=== PATIENT | female | born 1940 | race Caucasian/White ===

== ENCOUNTER → 2019-11-18 12:02 | Outpatient (CLI) | payer MEDICARE, SELFPAY ==
--- NOTE | ~2019-11-18 | MM_ITS ---
EXAMINATION: MM screening [facility] BI w kristopher HISTORY: Screening mammogram TECHNIQUE: Craniocaudal and mediolateral oblique 3-D tomosynthesis images were obtained and synthetic 2-D images were generated. CAD analysis was submitted and interpreted. COMPARISON: 08/27/2018, 08/23/2017, 08/16/2016 BREAST PARENCHYMAL COMPOSITION: There are scattered areas of fibroglandular density. FINDINGS: There is stable focal asymmetry in the middle third of the right breast. There is no eviden ce of suspicious mass, calcification, or architectural distortion to suggest malignancy in either shahrzad ast. There has been no suspicious interval change. IMPRESSION: 1. No mammographic evidence of malignancy. 2. Recommend routine screening mammography in one year. BI-RADS Category 2: Benign finding(s). Reviewed, dictated and finalized at location A.
== END ==
PROVIDERS: PCP Internal Medicine; Visit Provider Internal Medicine
DX: Z12.31 Encounter for screening mammogram for malignant neoplasm of breast (principal)
CPT/HCPCS: 77063; 77067

== ENCOUNTER 2020-07-05 17:05 | Outpatient (CLI) | payer MEDICARE, SELFPAY | END 2020-07-05 17:06 | disposition home or self-care (01) | LOC: ANHCOVIDVC 17:05 | PROVIDERS: PCP Internal Medicine | DX: Z23 Encounter for immunization (principal) | CPT/HCPCS: 0001A; 91300 ==

== ENCOUNTER 2020-07-26 16:45 | Outpatient (CLI) | payer MEDICARE, SELFPAY | END 2020-07-26 16:46 | disposition home or self-care (01) | LOC: ANHCOVIDVC 16:45 | PROVIDERS: PCP Internal Medicine | DX: Z23 Encounter for immunization (principal) | CPT/HCPCS: 0002A; 91300 ==

== ENCOUNTER 2020-12-06 14:15 | Outpatient (CLI) | payer MEDICARE, SELFPAY ==
--- NOTE | ~2020-12-06 | XR_ITS ---
XR lumbar spine 6V w bending DATE: 12/06/2020 14:53 INDICATION: Low back pain for 2 months. No injury. TECHNIQUE: Upright AP and flexion or extension lateral views. Bilateral supine oblique views, supine lateral view. Coned lateral lumbosacral view COMPARISON: None FINDINGS: Diffuse osteopenia. There is severe degenerative disc disease at L2-3 with prominent spur formation. The remaining lumbar and lumbosacral interspaces are relatively preserved. There is mild degenerative disease at L3-4 and L4-5. There is degenerative change at the apophyseal joints with associated grade 1 anterolisthesis at L4-5 . No spondylolysis is detected. No fracture or bone destruction is evident. The included lower thoracic and lumbar pedicles are intac t. The sacroiliac joints appear normal. Status post cholecystectomy. There is atherosclerotic calcification of the abdominal aorta and iliac arteries. IMPRESSION: Degenerative disc disease, severe at L2-3, mild at L3-4 and L4-5 Degenerative change at the apophyseal joints with associated grade 1 anterolisthesis at L4-5 Osteopenia Reviewed, dictated and finalized at location B. IMPRESSION: Degenerative disc disease, severe at L2-3, mild at L3-4 and L4-5 Degenerative change at the apophyseal joints with associated grade 1 anterolist hesis at L4-5 Osteopenia
== END 2020-12-06 14:16 | disposition home or self-care (01) ==
PROVIDERS: PCP Internal Medicine; Visit Provider Physician Assistant
DX: M54.5 Low back pain (principal); M51.36 Other intervertebral disc degeneration, lumbar region; M43.16 Spondylolisthesis, lumbar region; M85.88 Other specified disorders of bone density and structure, other site
CPT/HCPCS: 72114

== ENCOUNTER → 2020-12-09 13:06 | Outpatient (CLI) | payer MEDICARE, SELFPAY ==
--- NOTE | ~2020-12-09 | MM_ITS ---
EXAMINATION: MM screening [facility] BI w kristopher HISTORY: Screening TECHNIQUE: Craniocaudal and mediolateral oblique 3-D tomosynthesis images were obtained and synthetic 2-D images were generated. CAD analysis was submitted and interpreted. COMPARISON: Comparison to multiple prior studies sequentially, with oldest reviewed study dated 10/2014. BREAST PARENCHYMAL COMPOSITION: There are scattered areas of fibroglandular density. FINDINGS: There is no evidence of suspicious mass, calcification, or architectural distortion to sugg est malignancy in either breast. There has been no suspicious interval change. IMPRESSION: 1. No mammographic evidence of malignancy. 2. Recommend routine screening mammography in one year. BI-RADS Category 1: Negative Reviewed, dictated and finalized at location A.
== END ==
PROVIDERS: PCP Internal Medicine; Visit Provider Internal Medicine
DX: Z12.31 Encounter for screening mammogram for malignant neoplasm of breast (principal)
CPT/HCPCS: 77063; 77067

== ENCOUNTER 2021-04-19 13:39 | Outpatient (CLI) | payer MEDICARE, SELFPAY ==
--- NOTE | ~2021-04-19 | XR_ITS ---
EXAMINATION: XR ankle RT min 3V DATE: 04/19/2021 14:06 INDICATION: Right ankle effusion. TECHNIQUE: 4 views of right ankle were obtained. COMPARISON: None. FINDINGS: Bone alignment is normal. No fracture. There is an osteochondral lesion of medial talar dom e. There is mild osteoarthritis of talonavicular joint. There is an enthesophyte at plantar aspect of calcaneal tuberosity. Ankle soft tissue swelling is noted. IMPRESSION: 1. 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 Reviewed, dictated and finalized at location A. 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 Polyarticular osteoarthritis including an osteochondral lesion of medial john ar dome.
== END 2021-04-19 13:40 | disposition home or self-care (01) ==
PROVIDERS: PCP Internal Medicine; Visit Provider Physician Assistant
DX: M79.89 Other specified soft tissue disorders (principal); M19.071 Primary osteoarthritis, right ankle and foot; M77.31 Calcaneal spur, right foot
CPT/HCPCS: 73610

== ENCOUNTER → 2021-11-14 15:12 | Outpatient (CLI) | payer MEDICARE, SELFPAY ==
--- NOTE | ~2021-11-14 | XR_ITS ---
XR chest 2V DATE: 11/14/2021 15:43 INDICATION: Cough TECHNIQUE: 2 views COMPARISON: 02/2013 portable AP chest FINDINGS: Heart size is within normal range. The lungs are moderately hyperinflated. No pulmonary inf iltrate or consolidation, pleural effusion or pulmonary vascular congestion or pneumothorax is detect ed. Osteopenia. IMPRESSION: Moderate hyperinflation; no active cardiopulmonary disease Reviewed, dictated and finalized at location A.
== END ==
PROVIDERS: PCP Internal Medicine; Visit Provider Internal Medicine
DX: R05.9 Cough, unspecified (principal); R91.8 Other nonspecific abnormal finding of lung field
CPT/HCPCS: 71046

== ENCOUNTER 2021-12-15 08:27 | Outpatient (CLI) | payer MEDICARE, SELFPAY ==
--- NOTE | ~2021-12-15 | NM_ITS ---
EXAMINATION: NM dexter stress w perfusion DATE: 12/15/2021 12:49 INDICATION: Chest pain. TECHNIQUE: Rest images were obtained following intravenous administration of 10.0 mCi Tc99m tetrofosm in (Myoview). The patient was infused intravenously with Lexiscan (regadenoson). Then, 32.2 mCi Tc99m tetrofosmin (Myoview) was administered intravenously, and supine and prone stress images were obtain ed. Data was reconstructed into short axis and horizontal and vertical long axis SPECT images. Gated SPECT images were also obtained. COMPARISON: CT abdomen and pelvis 02/07/2013 FINDINGS: There is a moderate-sized, mild, reversible perfusion defect involving apical to mid inferi or and mid inferolateral segments of left ventricle, consistent with ischemia. There is no segmental wall motion abnormality. Left ventricular ejection fraction measures 59%. IMPRESSION: 1. Moderate-sized area of mild ischemia involving apical to mid inferior and mid inferolateral segmen ts of left ventricle. 2. Normal left ventricular ejection fraction measuring 59%. Reviewed, dictated and finalized at location A. IMPRESSION: 1. Moderate-sized area of mild ischemia involving apical to mid inferior and mi d inferolateral segments of left ventricle. 2. Normal left ventricular ejection fraction measuring 59%.
--- NOTE | 2021-12-15 08:54 | EST_ITS ---
Patient Info Name: Lilian Glaser Age: 81 years : 1940 Gender: Female Ht: 63 in Wt: 175 lbs BSA: 1.91 m2 HR: 74 bpm BP: 189 / 75 mmHg Heart Rhythm: Sinus Rhythm Exam Date: 12/15/2021 11:01 AM Exam Location: [facility] Stress Patient Status: Outpatient Admit Date: 12/15/2021 Staff Ordering Physician: Josias Edmond DO Attending Provider: Josias Edmond DO Exercise Technologist: Eduarda Chacon CT Exercise Physician: Jamie Jerez DO Exam Type: CA stress dexter w NM Study Info Indications R07.9 - Chest pain, unspecified A regadenoson stress test was performed. Summary 1. 1. Negative lexiscan stress test for ischemic ST changes by ECG criteria. 2. 2. Baseline hypertension. 3. 3. Nuclear scan to follow and will be reported separately. Please correlate with it. 4. 4. Patient informed of the above results. Protocol: Lexiscan Stress ECG Details Stage: REST Duration (min): 2 min : 18 sec HR (bpm): 74 SBP (mmHg): 189 DBP (mmHg): 75 Stage: REST Duration (min): 16 min : 14 sec HR (bpm): 74 SBP (mmHg): 189 DBP (mmHg): 75 Stage: STAGE 1 Duration (min): 1 min : 0 sec HR (bpm): 90 SBP (mmHg): 180 DBP (mmHg): 60 Stage: RECOVERY Duration (min): 1 min : 0 sec HR (bpm): 101 SBP (mmHg): 180 DBP (mmHg): 60 Stage: RECOVERY Duration (min): 2 min : 0 sec HR (bpm): 101 SBP (mmHg): 180 DBP (mmHg): 60 Stage: RECOVERY Duration (min): 3 min : 0 sec HR (bpm): 101 SBP (mmHg): 181 DBP (mmHg): 70 Stage: RECOVERY Duration (min): 3 min : 2 sec HR (bpm): 100 SBP (mmHg): 181 DBP (mmHg): 70 Rest HR: 74 bpm Peak HR: 102 bpm Rest Sys BP: 189 mmHg Peak Sys BP: 181 mmHg Max Pred HR: 138 bpm % Max Pred HR: 74 % Target HR: 117 bpm Max RPP: 18,462 bpm*mmHg Termination Reason: Completed protocol Cardiac Symptoms: Chest tightness Total Time: 1 min : 0 sec Rest Mascorro BP: 75 mmHg Peak Mascorro BP: 70 mmHg Total Dose: 0.4 mg Resting ECG Sinus rhythm, RBBB. Stress ECG No ST changes. Arrhythmias None. Report Signatures
--- NOTE | 2021-12-15 08:54 | ECHO_ITS ---
Patient Info Name: Lilian Glaser Age: 81 years : 1940 Gender: Female Ht: 63 in Wt: 175 lbs BSA: 1.91 m2 HR: 76 bpm BP: 150 / 71 mmHg Technical Quality: Fair Exam Date: 12/15/2021 9:15 AM Exam Location: [facility] Patient Status: Outpatient Admit Date: 12/15/2021 Staff Ordering Physician: Josias Edmond DO Assistant Financial Accountant: Soledad Hidalgo RDCS Attending Provider: Josias Edmond DO Referring Physician: Mayito STROUD; Exam Type: CA echo doppler color flow Study Info Indications R01.1 - Cardiac murmur, unspecified Complete two-dimensional, color flow and Doppler transthoracic echocardiogram is performed. Summary 1. Complete two-dimensional, color flow and Doppler transthoracic echocardiogram is performed. 2. Left ventricular chamber dimension is normal. 3. Left ventricular systolic function is normal, estimated at 60-65%. 4. There is mildly increased left ventricular wall thickness. 5. The left ventricular diastolic function is grade III diastolic dysfunction. 6. E/e' 19 is elevated. 7. Global longitudinal strain is abnormal at -10.6%. 8. Right ventricular systolic function is reduced based on abnormal TAPSE 1.5 cm. 9. Left atrial chamber dimension is moderately enlarged. 10. There is moderate aortic valve sclerosis. 11. The mitral valve has moderately calcified annulus. 12. There is mild mitral valve regurgitation. 13. No pulmonary hypertension, estimated pulmonary arterial systolic pressure is 33 mmHg. 14. Small atheroma in anterior aortic root. Left Ventricle E/e' 19 is elevated. Global longitudinal strain is abnormal at -10.6%. Left ventricular chamber dimension is normal. Left ventricular systolic function is normal, estimated at 60-65%. There is mildly increased left ventricular wall thickness. The left ventricular diastolic function is grade III diastolic dysfunction. Right Ventricle Right ventricular systolic function is reduced based on abnormal TAPSE 1.5 cm. Right ventricular chamber dimension is not well visualized. Left Atria Left atrial chamber dimension is moderately enlarged. Right Atria Right atrial chamber dimension is normal. Aortic Valve The aortic valve is trileaflet. There is moderate aortic valve sclerosis. There is no aortic valve stenosis. There is no aortic valve regurgitation. Pulmonic Valve There is no pulmonic regurgitation. Mitral Valve The mitral valve has moderately calcified annulus. There is no mitral valve stenosis. There is mild mitral valve regurgitation. Tricuspid Valve There is no tricuspid valve regurgitation. No pulmonary hypertension, estimated pulmonary arterial systolic pressure is 33 mmHg. Pericardium/Pleural There is no pericardial effusion. Inferior Vena Cava Normal inferior vena cava with >50% collapse upon inspiration consistent with normal right atrial pressure, 5 mmHg. Aorta Small atheroma in anterior aortic root. The aortic root size at the sinus of Valsalva is normal. Left Ventricular Outflow Tract Name Value Normal LVOT 2D LVOT Diameter 2.0 cm LVOT Doppler LVOT Peak Gradient
== END 2021-12-15 08:28 | disposition home or self-care (01) ==
PROVIDERS: PCP Internal Medicine; Visit Provider Internal Medicine
DX: R01.1 Cardiac murmur, unspecified (principal); Z79.4 Long term (current) use of insulin; R07.89 Other chest pain; E11.65 Type 2 diabetes mellitus with hyperglycemia; I70.0 Atherosclerosis of aorta; R93.1 Abnormal findings on diagnostic imaging of heart and coronary circulation
CPT/HCPCS: 78452; 93017; 93306; A9502; J2785

== ENCOUNTER 2022-01-23 00:29 | Day surgery (SDC) | payer MEDICARE, SELFPAY ==
[2022-01-20 12:07] VITALS: BMI 31.9
[2022-01-23] VITALS (17 sets, daily range): BP systolic 109–185; BP diastolic 40–63; PULSE 62–83; RESP 12–23; TEMP 36.9–37.1; O2SAT 93–96; BMI 33.7
[2022-01-23 09:33] LABS: Basophils Absolute Auto 0.1 K/mm3 (0.0-0.1); Basophils Percent Auto 0.6 % (0.2-1.2); Eosinophils Absolute Auto 0.4 K/mm3 (0-0.3); Eosinophils Percent Auto 3.2 % (0-4.4); Hematocrit 40.5 % (37.0-47.0); Hemoglobin 13.2 g/dL (12.0-15.0); Immature Granulocyte Absolute 0.04 K/mm3 (0.00-0.031); Immature Granulocyte Percent A 0.3 % (0-0.5); Lymphocytes Absolute Auto 3.35 K/mm3 (0.9-3.2); Lymphocytes Percent Auto 26.7 % (18.3-44.2); Mean Corpuscular HGB Conc 32.6 g/dl (32-36); Mean Corpuscular Hemoglobin 28.8 pg (26-34); Mean Corpuscular Volume 88.4 fl (80-100); Mean Platelet Volume 11.7 fl (7.4-10.4); Monocytes Absolute Auto 0.9 K/mm3 (0.1-0.6); Monocytes Percent Auto 7.3 % (2.6-8.5); Neutrophils Absolute Auto 7.8 K/mm3 (1.3-6.7); Neutrophils Percent Auto 61.9 % (45.5-73.1); Platelet Count Result 292 k/mm3 (150-375); Red Blood Count 4.58 M/mm3 (4.2-5.4); Red Cell Distribution Width 13.6 % (11.5-14.5); White Blood Count 12.5 K/mm3 (4.5-10.0)
[2022-01-23 09:43] LABS: Anion Gap 9 mmol/L (8-16); Blood Urea Nitrogen 21 mg/dL (7-17); Carbon Dioxide 28 mmol/L (22-30); Chloride 104 mmol/L (98-107); Estimated CRCL calculation 33 ml/min; Estimated Glomerular Filt Rate 43; Glucose 103 mg/dL (65-110); Potassium 4.4 mmol/L (3.4-5.0); Sodium 141 mmol/L (137-145)
[2022-01-23] MEDS: SODIUM CHLORIDE 0.9% IV 500 ML 100 ML IV CONT (09:45)
--- NOTE | 2022-01-23 10:09 | WPDMODSED ---
Moderate Sedation Note-Pt Data Patient Data Diagnosis: Exertional dyspnea hypertension diabetes abnormal stress test Present Complaint: exertional shortness of breath Procedure to be performed/Plan: left heart catheterization Allergies Allergy/AdvReac Type Severity Reaction Status Date / Time Qrzrrgg-PLW-UbO Reductase Allergy Severe Muscle Pain Verified 01/23/22 09:25 Inhibitor [Rhjcznm-Cmg-Gmx Reductase Inhibitor] lisinopril Allergy Unknown Other Verified 01/23/22 09:25 latex Allergy Unknown Verified 01/23/22 09:25 metformin AdvReac Mild Diarrhea Verified 01/23/22 09:25 adhesive AdvReac Unknown Verified 01/23/22 09:25 adhesive tape AdvReac Unknown Verified 01/23/22 09:25 Home Medications Medication Instructions Recorded Confirmed Type multivitamin,sv-pxph-pijwevsw 1 tablet PO DAILY 01/09/20 01/23/22 History (Complete Multivitamin tablet) insulin syringe-needle U-100 0.5 #200 ea 06/10/20 12/29/21 Rx mL 31 gauge x 5/16 (BD Insulin Syringe Ultra-Fine) blood sugar diagnostic (OneTouch #300 ea 08/18/20 12/29/21 Rx Verio test strips) lancets 33 gauge (OneTouch Delica #300 ea 08/18/20 12/29/21 Rx Lancets) ibuprofen 800 mg tablet 800 mg PO BID PRN pain #60 tabs 12/06/20 01/20/22 Rx insulin lispro protamine-lispro 35 unit subcut BID 12/05/21 01/23/22 History 100 unit/mL (75-25) subcutaneous susp (Humalog Mix 75-25(U-100)Insuln) ergocalciferol (vitamin D2) 1,250 50,000 unit PO WEEKLY #13 caps 12/26/21 01/20/22 Rx mcg (50,000 unit) capsule gabapentin 100 mg capsule 200 mg PO QHS #180 caps 12/27/21 01/23/22 Rx primidone 50 mg tablet (Mysoline) 50 mg PO QHS #90 tabs 12/27/21 01/23/22 Rx aspirin 81 mg tablet,delayed 81 mg PO DAILY 12/29/21 01/23/22 History release evolocumab 140 mg/mL subcutaneous 140 mg subcut .every 2 weeks #2 mL 12/29/21 01/20/22 Rx pen injector (Kim Saleh) acetaminophen 500 mg tablet 1,000 mg PO DAILY PRN Pain 01/20/22 01/20/22 History biotin 5,000 mcg sublingual tablet 5,000 mcg sublingual DAILY 01/20/22 01/23/22 History losartan 25 mg tablet 25 mg PO DAILY 01/20/22 01/23/22 History Current Medications: Active Medications Sodium Chloride (Normal Saline Iv) 500 mls @ 100 mls/hr IV CONT .Q5H KIYA Sedation/Anesthesia: No previous sedation/anesthesia problems (including family history). [facility] Family History Family History Mother Hypertension, Onset Age: 94 Father Patient's father is Social History Social History Smoking packs per day: 1 Smoking cigarettes per day: 20.0 Years smoked: 54 Smoking pack-years: 54.00 Smoking status: Former smoker Tobacco type: cigarettes Second hand tobacco smoke exposure: No Smoking end date: 05/07/09 Alcohol intake: never Substance use: never Substance use type: does not use Living arrangements: alone Additional living arrangements comments: lives in [facility] Spiritual care concerns: No Mod Sed Physical Exam Physical Exam Pre Procedural Exam: Normal: Nose, Neck, Throat, Airway, Lungs, Heart Rate, Heart Rhythm and Neuro Exam and Variation: Appearance ( overweight lady no apparent distress somewhat anxious), Heart Size ( difficult to palpate PMI) and Extremities ( lower extremity pulses 1/4) Hours since solid foods: 12 Hours since liquid intake: 12 Mallampati Classification: class II Internal Medicine - PN: Obj Da Vital Signs Vital Signs: Vital Signs - 24 hr 01/23/22 09:58 Temperature 36.9 C Pulse Rate 83 Respiratory Rate 16 Blood Pressure 185/60 H Pulse Oximetry 96 Oxygen Delivery Room Air Meds/Results Medications: Active Medications Generic Name Dose Route Start Last Admin Trade Name Freq PRN Reason Stop Dose Admin Sodium Chloride 500 mls @ 100 mls/hr 01/23/22 10:00 Normal Saline Iv
--- NOTE | 2022-01-23 10:54 | P.PCNCC_ITS ---
Cardiac Cath Procedure Note Date of procedure:: 01/23/22 Performing physician:: Tao Moody MD Indication:: Exertional dyspnea abnormal nuclear stress test Brief clinical history:: this is an 81-year-old lady with diabetes who has been reporting symptoms of exertional dyspnea for several months. Nuclear stress testing has demonstrated evidence of inferior ischemia. Procedure Procedure performed:: Left ventriculogram coronary angiogram Sedation/Medication given:: fentanyl 50 mg Versed 4 mg case start time 10:29 a.m. case end time 10:48 a.m. sedation provided by Soledad Simons RN, trained observer Access site:: right femoral artery Estimated blood loss:: 25 cc Procedure note:: patient was brought to the cardiac catheterization lab where the right femoral triangle was prepared and draped in the normal fashion. Anesthesia was provided with 1% lidocaine infiltrated locally. Using the modified self 5 [place] Island[place] sheath was placed into the femoral artery after this left heart catheterization was carried out. A 5 [place] Island[place] angled pigtail catheter was used to measure left-sided hemodynamics and to inject the left ventriculogram in the ER AO projection. Following this standard 5 [place] Island[place] FL4 catheter was used to engage and inject the left coronary artery and then a 5 [place] Island[place] JR4 catheter was used to engage and inject the right coronary artery. The patient tolerated the procedure well. 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 The sheath will be removed with direct manual compression in the holding area. Findings:: Hemodynamics: Central aortic pressure is 190 70 left ventricle 190 over 8 end-diastolic pressure 18 there is no gradient on pullback across the aortic valve. Left ventricle: The LV is normal in size the inferior wall is moderately hypodynamic the remainder of the LV contracts well the global ejection fraction appears to be about 50%. Left coronary artery is medium in caliber with mild distal plaquing but no significant lesion. The left anterior descending is a medium caliber artery which is severely diseased in the 1st half of the artery. There 6 3 sequential lesions of greater than 90% with 99% stenosis in the midportion of the artery. The major diagonal branch takes off its origin and I in this area of disease and also has a 90% ostial stenosis. The circumflex is a moderate caliber artery with about 70-80% proximal stenosis. The 1st OM branch takes off proximally and is 100% occluded. There is mild plaquing in the AV groove portion of circumflex and a distal marginal branch is free of significant disease. The right coronary artery is dominant to the posterior circulation and is 100% occluded proximally. There is a right ventricular branch patent the rest of the RCA is severely diffusely diseased and 100% occluded proximally. There is co llateral filling from the circumflex to the distal right coronary artery with filling the RPDA and 2 RPL branches. Conclusion:: 1. Severe 3 vessel coronary artery disease with right coronary dominant circulation 2. serial sequential high-grade lesions in the proximal to mid LAD with 99% stenosis in the midportion and 90% stenosis of the major diagonal branch at its origin 3. total occlusion of long OM1 with about 70% stenosis of the proximal circumflex. A distal marginal branch receives antegrade flow. 4. Chronic total occlusion of the proximal right coronary artery with collateral filling to the RPDA and RPL branches from the circumflex 5. mild left ventricular dysfunction with infero post
--- NOTE | 2022-01-23 11:31 | SUR.PHASEII ---
1117-Sheath removed from rt groin. Manual pressure in place. Pt tolerating well. No hematoma or bleeding noted.
--- NOTE | 2022-01-23 11:42 | SUR.PHASEII ---
Hemostasis achieved. stat seal and tegaderm applied
== END 2022-01-23 17:15 | disposition home or self-care (01) ==
PROVIDERS: PCP Internal Medicine; Visit Provider Specialist
PROC: 4A023N7 Measurement of Cardiac Sampling and Pressure, Left Heart, Percutaneous Approach (ICD-10-PCS; CPT 93452; principal; 2022-01-23 10:00)
DX: I25.10 Atherosclerotic heart disease of native coronary artery without angina pectoris (principal); R94.39 Abnormal result of other cardiovascular function study; R06.09 Other forms of dyspnea; E78.01 Familial hypercholesterolemia; I10 Essential (primary) hypertension; Z79.4 Long term (current) use of insulin; Z79.82 Long term (current) use of aspirin; Z87.891 Personal history of nicotine dependence
CPT/HCPCS: 36415; 80048; 85025; 93458; C1887; C1894; J0461; J1644; J2250; J3010; J7040

== ENCOUNTER → 2022-05-16 13:52 | Outpatient (CLI) | payer MEDICARE, SELFPAY ==
--- NOTE | ~2022-05-16 | MM_ITS ---
EXAMINATION: MM screening [facility] BI w kristopher HISTORY: Screening mammogram TECHNIQUE: Craniocaudal and mediolateral oblique 3-D tomosynthesis images were obtained and synthetic 2-D images were generated. CAD analysis was submitted and interpreted. COMPARISON: 12/09/2020, 11/18/2019, 08/27/2018 bilateral screening mammogram examinations BREAST PARENCHYMAL COMPOSITION: There are scattered areas of fibroglandular density. FINDINGS: There are bilateral breast masses. Bilateral diagnostic mammography and breast ultrasound e xamination are recommended. IMPRESSION: 1. Bilateral breast masses 2. Bilateral diagnostic mammography and breast ultrasound examination are recommended BI-RADS Category 0: Incomplete: Needs additional imaging evaluation. Reviewed, dictated and finalized at location A. 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 Bilateral breast masses 2. Bilateral diagnostic mammography and breast ultrasound examination are recom mended BI-RADS Category 0: Incomplete: Needs additional imaging evaluation.
== END ==
PROVIDERS: PCP Internal Medicine; Visit Provider Internal Medicine
DX: Z12.31 Encounter for screening mammogram for malignant neoplasm of breast (principal); R92.8 Other abnormal and inconclusive findings on diagnostic imaging of breast
CPT/HCPCS: 77063; 77067

== ENCOUNTER → 2022-06-12 13:49 | Outpatient (CLI) | payer MEDICARE, SELFPAY ==
--- NOTE | ~2022-06-12 | MMUS_ITS ---
EXAMINATION: MM diagnostic [facility] BI w kristopher, US breast BI complete HISTORY: Bilateral breast masses reported on 05/16/2022 screening mammogram TECHNIQUE: Additional 3-D tomosynthesis images of both breasts were performed and synthetic 2-D image s were generated. CAD analysis was submitted and interpreted. High resolution complete bilateral [facility] ultrasound examination including all 4 quadrants and subareolar areas was performed. COMPARISON: 05/16/2022 bilateral screening mammogram FINDINGS: MAMMOGRAPHIC FINDINGS: Scattered bilateral benign appearing circumscribed low-density opacities are noted, largest situated in the lower mid left breast measuring up to approximately 7 mm, a 3 mm circumscribed opacity in the lower outer left breast.. Occasional bilateral benign calcifications are noted. ULTRASOUND: Right breast: Approximately 2.8 mm cyst is noted in the subareolar area. No suspicious mass or shadowing of the rig ht breast. Left breast: 3:00 4 cm from nipple: Approximately 3 x 4 mm circumscribed relatively sonolucent lesion , benign in appearance, without internal vascularity or posterior shadowing 6:00 3 cm from nipple: 5 x 6 mm x 7 mm cyst 10:00 3 cm from nipple: 3 mm cyst Subareolar area: Benign cluster of cysts or ducts IMPRESSION: 1. No mammographic evidence of malignancy 2. Routine annual mammographic screening is recommended. BI-RADS Category 2: Benign finding(s). Reviewed, dictated and finalized at location A. HHA IMPRESSION: 1. No mammographic evidence of malignancy 2. Routine annual mammographic screening is recommended. BI-RADS Category 2: Benign finding(s).
== END ==
PROVIDERS: PCP Internal Medicine; Visit Provider Internal Medicine
DX: R92.8 Other abnormal and inconclusive findings on diagnostic imaging of breast (principal)
CPT/HCPCS: 76641; 77062; 77066; G0279

== ENCOUNTER 2022-09-15 14:45 | Outpatient (CLI) | payer MEDICARE, SELFPAY ==
--- NOTE | ~2022-09-15 | US_ITS ---
EXAMINATION: US pelvic complete DATE: 09/15/2022 15:13 INDICATION: Post menopausal bleeding TECHNIQUE: Multiple transabdominal sonographic images of the pelvis were obtained. Patient refused tr ansvaginal imaging. COMPARISON: None. FINDINGS: The uterus measures 7.8 x 5.3 x 3.8 cm. The endometrial complex is unable to distinguish from the my ometrium. The bilateral ovaries are not visualized. There is no free fluid in the pelvis. IMPRESSION: 1. Endometrial complex and ovaries were unable to be visualized with transabdominal imaging. Patient refused transvaginal imaging. Reviewed, dictated and finalized at location A. IMPRESSION: 1. Endometrial complex and ovaries were unable to be visualized with transabdom inal imaging. Patient refused transvaginal imaging.
== END 2022-09-15 14:46 | disposition home or self-care (01) ==
PROVIDERS: PCP Internal Medicine; Visit Provider Registered Nurse
DX: N95.0 Postmenopausal bleeding (principal)
CPT/HCPCS: 76856

== ENCOUNTER 2022-09-27 13:52 | Outpatient (CLI) | payer MEDICARE, SELFPAY ==
--- NOTE | ~2022-09-27 | US_ITS ---
EXAMINATION: US transvaginal DATE: 09/27/2022 15:03 INDICATION: Postmenopausal bleeding Comparison:Ultrasound dated 09/15/2022 TECHNIQUE: Multiple endovaginal sonographic images of the pelvis performed. FINDINGS: The uterus measures 7.6 x 4.2 x 4.9 cm. The endometrium is thickened and heterogeneous puneet uring 18 mm. There is a 6 mm echogenic foci in the myometrium, likely calcification from uterine fibr oid. The ovaries are not visualized. There is no free fluid in the pelvis. There are no abnormal masses seen on either side. IMPRESSION: 1. Thickened heterogeneous endometrium measuring 1.8 cm. The differential diagnosis includes endometr ial hyperplasia, polyp and carcinoma. Biopsy is recommended. Reviewed, dictated and finalized at location B. IMPRESSION: 1. Thickened heterogeneous endometrium measuring 1.8 cm. The differential diagn osis includes endometrial hyperplasia, polyp and carcinoma. Biopsy is recommended.
== END 2022-09-27 13:53 | disposition home or self-care (01) ==
PROVIDERS: PCP Internal Medicine; Visit Provider Registered Nurse
DX: N95.0 Postmenopausal bleeding (principal); R93.89 Abnormal findings on diagnostic imaging of other specified body structures
CPT/HCPCS: 76830

== ENCOUNTER 2023-07-25 14:35 | Outpatient (CLI) | payer MEDICARE, SELFPAY ==
--- NOTE | ~2023-07-25 | MM_ITS ---
EXAMINATION: MM screening epifanio BI w kristopher HISTORY: Screening TECHNIQUE: Craniocaudal and mediolateral oblique 3-D tomosynthesis images were obtained and synthetic 2-D images were generated. CAD analysis was submitted and interpreted. COMPARISON: Comparison to multiple prior studies sequentially, with oldest reviewed study dated Ivan rison to multiple prior studies sequentially, with oldest reviewed study dated 08/23/2017. . BREAST PARENCHYMAL COMPOSITION: Not dense: There are scattered areas of fibroglandular density. FINDINGS: There is a new mass in the lower inner quadrant of the left breast, middle third. The right breast is stable without evidence for malignancy. IMPRESSION: 1. New mass lower inner quadrant of the left breast containing punctate calcifications. 2. Additional mammographic views and possible breast ultrasound are recommended. BI-RADS Category 0: Incomplete: Needs additional imaging evaluation. Reviewed, dictated and finalized at location A. IMPRESSION: 1. New mass lower inner quadrant of the left breast containing punctate calcifi cations. 2. Additional mammographic views and possible breast ultrasound are recommended . BI-RADS Category 0: Incomplete: Needs additional imaging evaluation.
== END 2023-07-25 14:36 ==
PROVIDERS: PCP Internal Medicine; Visit Provider Internal Medicine
DX: Z12.31 Encounter for screening mammogram for malignant neoplasm of breast (principal); R92.8 Other abnormal and inconclusive findings on diagnostic imaging of breast
CPT/HCPCS: 77063; 77067

== ENCOUNTER 2023-08-27 13:43 | Outpatient (CLI) | payer MEDICARE, SELFPAY ==
--- NOTE | ~2023-08-27 | MMUS_ITS ---
EXAMINATION: MM diagnostic epifanio LT w kristopher, US breast LT complete HISTORY: New mass lower inner quadrant of left breast containing punctate calcifications was reported on 07/25/2023 screening mammogram TECHNIQUE: Additional 3-D tomosynthesis images of the left breast were performed and synthetic 2-D im ages were generated. CAD analysis was submitted and interpreted. High resolution complete left breast ultrasound examination including all 4 quadrants and subareolar area was performed. COMPARISON: 07/25/2023 bilateral screening mammogram FINDINGS: MAMMOGRAPHIC FINDINGS: Circumscribed 4.8 x 7.5 mm mass with subtle microcalcifications is noted in the lower inner quadrant of the left breast not far from midline. There are scattered additional smaller circumscribed nodular opacities. No suspicious mass, architectural distortion, malignant calcification, skin thickening or retraction is evident. ULTRASOUND: 4:00 3.5 cm from nipple: Parallel circumscribed hypoechoic 2.6 x 4.4 x 4 mm lesion with no internal v ascularity or posterior shadowing, benign in appearance. There is an adjacent 2 mm hypoechoic lesion without internal vascularity or posterior shadowing. 6:00 3.5 cm from nipple: Parallel circumscribed 5.9 x 4.7 x 8.4 mm sonolucency without internal vascu larity or posterior shadowing, benign in appearance 9:00 5.5 cm from nipple: 2.2 mm sonolucency without internal vascularity or posterior shadowing 11:00 subareolar area: 2.6 x 2.8 mm circumscribed hypoechoic lesion without internal vascularity or p osterior shadowing Subareolar 2.2 mm sonolucency IMPRESSION: 1. Benign findings 2. Routine annual mammographic screening is recommended BI-RADS Category 2: Benign finding(s). Reviewed, dictated and finalized at location A. IMPRESSION: 1. Benign findings 2. Routine annual mammographic screening is recommended BI-RADS Category 2: Benign finding(s).
== END 2023-08-27 13:44 ==
LOC: MICIMG 13:45
PROVIDERS: PCP Internal Medicine; Visit Provider Internal Medicine
DX: N63.24 Unspecified lump in the left breast, lower inner quadrant (principal); R92.8 Other abnormal and inconclusive findings on diagnostic imaging of breast
CPT/HCPCS: 76641; 77061; 77065; G0279

== ENCOUNTER 2024-07-28 13:05 | Outpatient (CLI) | payer MEDICARE, SELFPAY ==
--- NOTE | ~2024-07-28 | MM_ITS ---
EXAMINATION: MM screening [facility] BI w kristopher HISTORY: Screening TECHNIQUE: Craniocaudal and mediolateral oblique 3-D tomosynthesis images were obtained and synthetic 2-D images were generated. CAD analysis was submitted and interpreted. COMPARISON: 08/27/2023 and dating back to 12/09/2020 BREAST PARENCHYMAL COMPOSITION: There are scattered areas of fibroglandular density. FINDINGS: Punctate calcifications are detected bilaterally, stable and benign in appearance. Stable parenchymal pattern without suspicious microcalcifications, architectural distortion, discrete masses or significant asymmetry. IMPRESSION: 1. No mammographic evidence of malignancy. 2. Recommend routine screening mammography in one year. BI-RADS Category 2: Benign finding(s). Reviewed, dictated and finalized at location A.
== END 2024-07-28 13:06 | disposition home or self-care (01) ==
LOC: MICIMG 13:07
PROVIDERS: PCP Nurse Practitioner; Visit Provider Nurse Practitioner
DX: Z12.31 Encounter for screening mammogram for malignant neoplasm of breast (principal)
CPT/HCPCS: 77063; 77067